=== PATIENT | male | born 1970 | race Caucasian/White ===

== ENCOUNTER 2018-12-17 02:53 | Outpatient (CLI) | payer BC, SELFPAY ==
[2018-12-18 09:38] LABS: PSA, Screening 0.5 ng/ml (0-2.5)
== END 2018-12-17 03:13 ==
PROVIDERS: PCP Family Medicine; Visit Provider Family Medicine
DX: N13.8 Other obstructive and reflux uropathy (principal); N40.1 Benign prostatic hyperplasia with lower urinary tract symptoms; Z12.5 Encounter for screening for malignant neoplasm of prostate
CPT/HCPCS: 36415; 84153

== ENCOUNTER 2019-04-21 08:05 | Day surgery (SDC) | payer OTHER, SELFPAY ==
--- NOTE | 2019-04-21 06:49 | W.COLOREPORT ---
Date of service: 04/21/19 Time of Service: 09:41 Colonoscopy Report Date of procedure: 04/21/19 Pre-op diagnosis general: Colon Cancer Screening Post-op diagnosis procedure note: other (sigmoid polyp) Procedure: Colonoscopy with polypectomy Surgeon: Mariela Fragoso Anesthesia proc note operative: other (General/ ASA 2/Meredith Villa CRNA) Estimated blood loss (mL): 2 Pathology: other (sigmoid polyp) Complications: None Disposition: same day Indications: Mr. Barros is a pleasant 49 year old male seen in the office for a screening colonoscopy. Risks, benefits and complications have been reviewed. Complications include but are not limited to bleeding, pain, perforation, missed small lesion/polyp, sore throat, aspiration and adverse reaction to the medications. Questions were entertained and answered to their satisfaction and they wished to proceed. No guarantees were given or implied. Prep: Miralax/Dulcolax Procedure Start Time: 09:41 Procedure End Time: 10:08 Retraction Time: 17 minutes Findings: One small sessile polyp in the sigmoid colon Procedure Description: After informed consent was obtained the patient was taken to the procedure room and placed in a left decubitous position. Monitors were applied and a time out was done. The patients name, date of , procedure, allergies to medications and metal in their body was reviewed. The patient was then sedated. Once sedated and comfortable a rectal exam was done. External exam was normal. Internal exam revealed a normal sphincter tone and no palpable masses. The prostate felt smooth. The scope was then introduced and retro-flexed. No internal hemorrhoids were identified. The scope was then advanced to the cecum without difficulty. The TI and appendiceal orifice were identified. The prep was adequate. The scope was then slowly retracted over 17 minutes back into the rectum. Polyps were removed with cold forceps in the sigmoid colon. The scope was removed and the patient was woken up and taken back to Same day surgery in stable condition. The patient tolerated the procedure well and there were no immediate complications. Follow up: The patient should follow up in 3-5 years unless they develop changes in bowel habits or other new gastrointestinal complaints.
--- NOTE | 2019-04-21 06:51 | PDOC.DSDIS_ITS ---
Discharge Plan Disposition Patient Disposition: HOME Condition: Good Discharge Details Reason For Visit: Colon Cancer Screening Attending Provider: Mariela Fragoso Primary Care Provider: Kavon Gagnon Home Meds and New Rx's Prescriptions: Continued naproxen sodium [Aleve] 220 MG capsule 220 mg PO PRN Qty: 2 RF: 0 Discontinued polyethylene glycol 3350 17 gram/dose powder 238 g PO ONCE Qty: 238 RF: 0 bisacodyl [Dulcolax (bisacodyl)] 5 mg tablet,delayed release (DR/EC) 5 mg PO ONCE Qty: 4 RF: 0 Discharge Instructions Instructions: Colonoscopy (GEN), Colorectal Polyps (GEN) Additional Instructions: Findings: one polyp Follow up: 3-5 years Please call if you develop: fevers >101.5 Nausea or Vomiting Abdominal pain that is not transient DAY SURGERY UNIT POST COLONOSCOPY INSTRUCTIONS 1. Because there will be medication in your system for the next 24 hours, you may feel a little sleepy. Your coordination will be affected. Therefore: a. Do not drive or operate dangerous equipment for 24 hours. b. Do not drink alcohol beverages for 24 hours (not even beer). c. Plan to go home and rest for the day. 2. Generally there are no restrictions on your activity after a day or so has gone by, but you may feel a bit fatigued for a few days. 3 After you arrive home you may have a light meal and return to a normal diet as you can tolerate it without feeling sick to your stomach. 4. After surgery, you may feel pain or discomfort. This should be only transient, but if it persists please contact your doctor. 5. If there are any questions regarding the findings of your procedure, please f eel free to contact your doctor. 6. If you are unable to contact your doctor with a problem, contact the hospital at [phone]. 7. Continue all your regular medications unless directed otherwise. I understand the above instructions and have no questions. Signature of Patient or Responsible Adult Escort Date/Time Name of Responsible Adult Escort Signature of Nurse Date/Time Activity:: Activity as Tolerated Diet:: As Tolerated Discharge Orders Discharge Orders: Discharge Order (Routine); Ordered 04/21/19 Ordered By: Mariela Fragoso DS: Diagnosis Discharge Diagnosis (1) S/P colonoscopy: Status: Acute (2) Colorectal polyp detected on colonoscopy: Status: Acute
[2019-04-21 08:20] VITALS: BP 132/76; PULSE 77; RESP 16; TEMP 36.4; O2SAT 98
[2019-04-21] MEDS: Lactated Ringers 1,000 ML 80 ML IV (08:35)
--- NOTE | 2019-04-21 10:05 | BOWEL_PTH ---
PATIENT: Lindsay Barros LOC: [facility] U#:[id number] AGE/SX: 49/M ROOM: RE04/21/[address]: Mariela Fragoso MD : 1970 BED: DIS: 04/21/2019 SPEC #: [id number] RECD: 04/21/19 12:53 STATUS: ROBERTO REQ #: [id number] DUDLEY: 04/21/19 10:[address]: Mariela Fragoso DEPT: Surgical Specimen RECD BY: Reva Rodriguez ENTERED: 04/21/19 12:54 SP TYPE: Bowel OTHR DR: Kavon Gagnon MD Tissues: 1 - BIOPSY BOWEL Procedures: GROSS AND MICRO LEVEL 4 Comments: [id number]
[2019-04-21 10:46] VITALS: BP 110/76; PULSE 66; RESP 16; TEMP 36.2; O2SAT 98
== END 2019-04-21 11:06 | disposition home or self-care (01) ==
LOC: SUR 08:05
PROVIDERS: PCP Family Medicine; Visit Provider Surgery
PROC: 0DJD8ZZ Inspection of Lower Intestinal Tract, Via Natural or Artificial Opening Endoscopic (ICD-10-PCS; CPT 45378; principal; 2019-04-21 09:30)
DX: Z12.11 Encounter for screening for malignant neoplasm of colon (principal); K63.5 Polyp of colon
CPT/HCPCS: 45380; 88305

== ENCOUNTER 2020-12-24 02:21 | Outpatient (CLI) | payer BC, SELFPAY ==
[2020-12-24 07:21] LABS: HCT 42.2 % (40.0-50.0); HGB 14.5 g/dL (13.5-17.5); MCH 28.6 pg (27.0-33.0); MCHC 34.4 % (32.0-36.0); MCV 83.2 fL (80-95); MPV 9.6 fL (8.0-11.0); Platelet Count 290 10^3/uL (130-400); RBC 5.07 10^6/uL (4.36-5.78); RDW 12.3 % (11.8-14.1); RDW-SD 37.2 fL; WBC 4.36 10^3/uL (4.4-10.8)
[2020-12-24 08:23] LABS: Hemoglobin A1C 5.4 % (<5.7)
[2020-12-24 09:12] LABS: ALT 34 U/L (16-63); AST 16 U/L (15-37); Albumin 4.2 g/dL (3.4-5.0); Alkaline Phosphatase 91 U/L (46-116); Anion Gap 7.5 mmol/L (3-11); BUN 29 mg/dL (7-18); Bilirubin, Total 0.8 mg/dL (0.2-1.0); CO2 29.5 mmol/L (21.0-32.0); CREATININE 1.4 mg/dL (0.70-1.30); Calcium 9.4 mg/dL (8.5-10.1); Calculated LDL 99 mg/dL (<100); Chloride 106 mmol/L (98-107); Cholesterol 152 mg/dL (<200); Estimated GFR 53.43 (mL/min/1.73m2); Glucose 91 mg/dL (74-106); HDL Cholesterol 42 mg/dL (40-60); Potassium 4.8 mmol/L (3.5-5.1); Sodium 143 mmol/L (136-145); Total Protein 7.5 g/dL (6.4-8.2); Triglyceride 56 mg/dL (<150)
[2020-12-24 17:31] LABS: PSA, Screening 0.4 ng/mL (0.0-3.5)
== END 2020-12-24 02:22 | disposition home or self-care (01) ==
PROVIDERS: PCP Family Medicine; Visit Provider Nurse Practitioner Family
DX: Z00.00 Encounter for general adult medical examination without abnormal findings (principal); Z13.220 Encounter for screening for lipoid disorders; Z13.1 Encounter for screening for diabetes mellitus; Z12.5 Encounter for screening for malignant neoplasm of prostate
CPT/HCPCS: 36415; 80053; 80061; 84153; 85027; 83036

== ENCOUNTER 2022-05-15 03:51 | Outpatient (CLI) | payer BC, SELFPAY ==
[2022-05-15 12:55] LABS: Anion Gap 10.2 mmol/L (3-11); BUN 27 mg/dL (7-18); CO2 26.8 mmol/L (21.0-32.0); CREATININE 1.2 mg/dL (0.70-1.30); Calcium 9.4 mg/dL (8.5-10.1); Chloride 106 mmol/L (98-107); Glucose 92 mg/dL (74-106); Potassium 4.3 mmol/L (3.5-5.1); Sodium 143 mmol/L (136-145)
[2022-05-15 23:27] LABS: PSA, Screening 0.8 ng/mL (<=3.5)
== END 2022-05-15 03:52 | disposition home or self-care (01) ==
LOC: LOS 03:52
PROVIDERS: PCP Family Medicine; Visit Provider Family Medicine
DX: Z00.00 Encounter for general adult medical examination without abnormal findings (principal); Z12.5 Encounter for screening for malignant neoplasm of prostate; R03.0 Elevated blood-pressure reading, without diagnosis of hypertension
CPT/HCPCS: 36415; 80048; 84153

== ENCOUNTER 2023-02-09 10:48 | Outpatient (CLI) | payer BC, SELFPAY ==
[2023-02-12 09:09] LABS: PSA, Screening 0.8 ng/mL (<=3.5)
== END 2023-02-09 10:49 | disposition home or self-care (01) ==
LOC: LOS 10:48
PROVIDERS: PCP Family Medicine; Referring Provider Family Medicine; Visit Provider Family Medicine
DX: Z12.5 Encounter for screening for malignant neoplasm of prostate (principal)
CPT/HCPCS: 36415; 84153

== ENCOUNTER 2024-05-08 04:15 | Outpatient (CLI) | payer OTHER, SELFPAY ==
[2024-05-09 07:51] LABS: PSA, Screening 0.6 ng/mL (<=3.5)
[2024-05-09 09:04] LABS: Hepatitis C Ab w Rflx HCV PCR Negative (Negative)
[2024-05-09 09:28] LABS: HIV-1/2 Ag & Ab Screen Negative (Negative)
== END 2024-05-08 04:16 | disposition home or self-care (01) ==
LOC: LBO 04:16
PROVIDERS: PCP Family Medicine; Visit Provider Family Medicine
DX: Z12.5 Encounter for screening for malignant neoplasm of prostate (principal); Z80.42 Family history of malignant neoplasm of prostate; Z11.4 Encounter for screening for human immunodeficiency virus [HIV]; Z00.00 Encounter for general adult medical examination without abnormal findings
CPT/HCPCS: 36415; 84153; 86803; 87389

== ENCOUNTER 2024-10-07 14:19 | Outpatient (CLI) | payer OTHER, SELFPAY ==
--- NOTE | 2024-10-07 10:48 | DI.RAD_ITS ---
Exam(s) XR CERVICAL SPINE COMP 4-5V EXAM: XR CERVICAL SPINE COMP 4-5V CLINICAL HISTORY: back pain M54.9 DORSALGIA. TECHNIQUE: 2D digital imaging was performed. COMPARISON: No exams were available for comparison FINDINGS: Five views No evidence of fracture, listhesis, nor offset of the spinal laminar line. There is chronic moderate disc space narrowing at C4-5, C5-6, and C6-7 levels. There are prominent bilateral Luschka joint os teophytes at these levels. Mild degenerative changes in the facet joints. There are prominent C7 tr ansverse process is bilaterally, bordering on small cervical ribs at this level. Bone density normal. No osseous lesions. IMPRESSION: Multilevel chronic degenerative disc disease. Also multilevel Luschka joint osteophytes. Prominent C7 transverse processes. DATA REPOSITORY: RADIATION DOSE DELIVERED:
--- NOTE | 2024-10-07 10:48 | DI.RAD_ITS ---
Exam(s) XR THORACIC SPINE COMPLETE EXAM: XR THORACIC SPINE COMPLETE CLINICAL HISTORY: back pain with radiation to left arm M54.9 DORSALGIA. TECHNIQUE: 2D digital imaging was performed. COMPARISON: CR CHEST 2 VIEWS PA,LAT from 10/12/2016 FINDINGS: 3 views No evidence of fracture, listhesis, nor abnormal widening the paraspinal lines. No prominent scolios is. Bone density normal. No significant osseous lesions. There is mild disc space narrowing at T7- 8 level. Incidentally noted is some a small nodule in the mid right lung field which is probably a calcified g ranuloma and which is unchanged from chest x-ray of 2017. IMPRESSION: Mild degenerative changes as above. DATA REPOSITORY: RADIATION DOSE DELIVERED:
== END 2024-10-07 14:39 ==
LOC: DI 14:25
PROVIDERS: PCP Family Medicine; Visit Provider Physician Assistant
DX: M50.122 Cervical disc disorder at C5-C6 level with radiculopathy (principal)
CPT/HCPCS: 72050; 72072

== ENCOUNTER 2025-02-27 00:20 | Outpatient (CLI) | payer OTHER, SELFPAY ==
--- NOTE | 2025-02-27 08:26 | DI.RAD_ITS ---
Exam(s) XR HIP LT COMPLETE AP PELVIS EXAM: XR HIP LT COMPLETE AP PELVIS CLINICAL HISTORY: l inguinal pain,llq groin pain,r10.32. TECHNIQUE: 2D digital imaging was performed. Two views. COMPARISON: No exams were available for comparison FINDINGS: BONES: No acute fracture is present. No bony destructive lesion is seen. JOINTS: No dislocation present. The SI joints and pubic symphysis are intact. There is mild bilateral superior hip joint space narrowing. There is mild spurring at the superior acetabula as well as at the margins of both femoral heads. The findings of appears symmetric bilaterally. SOFT TISSUE: Normal. IMPRESSION: [id number] degenerative changes of both hips. DATA REPOSITORY: RADIATION DOSE DELIVERED:
== END 2025-02-27 00:40 ==
LOC: DI 00:20
PROVIDERS: PCP Family Medicine; Visit Provider Family Medicine
DX: M16.0 Bilateral primary osteoarthritis of hip
CPT/HCPCS: 73502

== ENCOUNTER 2025-04-09 18:50 | Emergency (ER) | payer OTHER, SELFPAY ==
[2025-04-09 18:53] VITALS: BP 159/79; PULSE 84; RESP 16; TEMP 36.7
[2025-04-09] MEDS: Tetracaine 0.5% 4 ML BTL OP (18:58)
[2025-04-09] MEDS: Fluorescein STRIPS 100/BOX 1 MG OP (18:59)
[2025-04-09 19:24] VITALS: O2SAT 98
--- NOTE | 2025-04-09 19:27 | W.ED.GENAD ---
Discharge Plan Disposition Patient Disposition: Home Condition: Stable Discharge Details Clinical Impression: Foreign body sensation, right eye Primary Care Provider: Sarah Silva ED Provider: Alexis Cormier Home Meds and New Rx's Prescriptions: No Action No Known Home Meds Discharge Instructions Additional Instructions: no foreign body seen or evidence of corneal disruption continue to wear glasses while symptoms are ongoing use ointment provided 3 times daily and keep eyes moist with artificial tears if symptoms are ongoing by Sunday, please follow up with [facility] or return to ED HPI General Date/Time Provider Initiated Documentation: 04/09/25 18:54. Limitations to Documentation: no limitations. Information obtained by: patient. HPI Narrative: 54-year-old gentleman without significant past medical history presents for evaluation as right eye discomfort. He reports that overnight last night when he woke up in the [place] he had a foreign body sensation so he went and irrigated his eye thoroughly. He states that it did not really bother him throughout the day, occasionally he still feels a little irritation there in the center of his eye. He has not noticed significant pain with eye movements or vision change. He reports that he does have contact lenses that he uses but he has not worn them in about a month. He usually just wears his glasses. 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 Related Data Home Medications ?Medication ?Instructions ?Recorded ?Confirmed Unknown [No Known Home Meds] 04/09/25 04/09/25 Allergies Allergy/AdvReac Type Severity Reaction Status Date / Time No Known Allergies Allergy Verified 04/09/25 18:52 General Stated Complaint: EyeProblem BRISEIDA: 4 Exam Narrative Exam Narrative: Review of Systems: All systems reviewed & are unremarkable except as noted in HPI and below Well-developed, no acute distress NCAT PERRL, normal conjunctiva no FB noted acuity 20/30, 20/50, 20/30 No fluorescein uptake Course Vital Signs Vital signs: Vital Signs Temperature 36.7 C 04/09/25 18:53 Pulse 84 04/09/25 18:53 Respiratory Rate 16 04/09/25 18:53 Blood Pressure 159/79 H 04/09/25 18:53 Temperature 36.7 C 04/09/25 18:53 Temperature Source Oral 04/09/25 18:53 Pulse 84 04/09/25 18:53 Respiratory Rate 16 04/09/25 18:53 Blood Pressure 159/79 H 04/09/25 18:53 Blood Pressure Position Sitting 04/09/25 18:53 Pulse Oximetry 98 04/09/25 19:24 Oxygen Delivery Method Room Air 04/09/25 19:24 Pain Level 2 04/09/25 18:53 Medical Decision Making Emergent evaluation of right eye discomfort. Reports foreign body sensation yesterday with minimal symptoms today, No significant deficit in acuity as well as there is no foreign body noted or fluorescein uptake on examination. I suspect that he had foreign body last night with some residual irritation today. Will give erythromycin for comfort. Although he does have history of contact lens use, do not think that he needs true treatment for eye infection, so I think erythromycin for comfort would be totally appropriate. Advise that if symptoms do not resolve over the weekend and he still has sensation by Sunday he should follow-up with [facility] Return to the emergency department over the weekend if he develops any worsening pain or vision deficits. PFSH All Active Problems (Updated 04/09/25 @ 19:16 by Alexis Cormier MD) Foreign body sensation, right eye (Acute) Chronic pain of left groin (Acute) Dupuytren's contracture of left hand (Acute) Family history of prostate cancer in father (Acute 11/20/16) Medical History (Updated 04/09/25 @ 19:16 by Alexis Cormier MD) Left cervical radiculopathy Lumbar back pain with radiculopathy affecting left lower extremity improved with a course of PT Colorectal polyp detected on colonoscopy (~04/21/19) hyperplastic pathology Left hand fracture Surgical History H/O hand surgery Left hand surgery (with screw placed) S/P colonoscopy (~04/21/19) Family History Mother , 72 Alzheimer disease Father , age 77 Prostate cancer Maternal Grandfather Heart disease Maternal Grandmother Heart disease ? 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 [employer] Pets and animals: Yes Pets and animals: dog(s) Sexually active: Yes Do you think of yourself as: straight/heterosexual Current gender identity: male What is your relationship status?: How often do you talk on the phone with friends or family?: three or more times per week How often do you get together with friends or relatives?: twice per week How often do you attend evangelical or scientology services?: 1-3 times per year Do you belong to any clubs or organized social groups?: yes Panel score (0-1 are the most socially isolated patients): 3 What type of physical activity do you participate in: walking and other Details: snowshoeing, snowmobiling Duration: 45-60 minutes/day Frequency: 3-4 times per week Manda/Mandaeism: Zoroastrian Special manda needs: No Seatbelt use: always Helmet use: Yes Helmet use: always Drive intox or ride w/intox delivery driver/supervisor: No Do you feel safe at home: Yes Additional Social history: Enjoys winter and outdoor activities.
== END 2025-04-09 19:27 | disposition home or self-care (01) ==
LOC: ER 19:17
PROVIDERS: Emergency Provider Emergency Medicine; PCP Family Medicine
DX: H57.8A1 Foreign body sensation, right eye (principal)
CPT/HCPCS: 99283

== ENCOUNTER 2025-06-10 17:05 | Outpatient (CLI) | payer OTHER, SELFPAY ==
[2025-06-10 17:39] LABS: Anion Gap 6.9 mmol/L (3-11); BUN 28 mg/dL (7-18); CO2 29.1 mmol/L (21.0-32.0); Calcium 9.2 mg/dL (8.5-10.1); Calculated LDL 78 mg/dL (<100); Chloride 106 mmol/L (98-107); Cholesterol 140 mg/dL (<200); Estimated GFR 78.79 (mL/min/1.73m2); Glucose 107 mg/dL (74-106); HDL Cholesterol 47 mg/dL (>or=40); Potassium 4.5 mmol/L (3.5-5.1); Sodium 142 mmol/L (136-145); Triglyceride 76 mg/dL (<150)
[2025-06-11 17:26] LABS: PSA, Screening 0.7 ng/mL (<=3.5)
== END 2025-06-10 17:06 | disposition home or self-care (01) ==
LOC: LBO 17:06
PROVIDERS: PCP Family Medicine; Visit Provider Family Medicine
DX: Z12.5 Encounter for screening for malignant neoplasm of prostate (principal); Z13.6 Encounter for screening for cardiovascular disorders; Z13.1 Encounter for screening for diabetes mellitus
CPT/HCPCS: 36415; 80048; 80061; 84153

== ENCOUNTER → 2025-09-11 09:53 | Outpatient (CLI) | payer OTHER, SELFPAY ==
--- NOTE | 2025-09-11 09:45 | DI.RAD_ITS ---
Exam(s) XR CHEST 2V PA LATERAL EXAM: XR CHEST 2V PA LATERAL CLINICAL HISTORY: cough R05.9. TECHNIQUE: 2D digital imaging was performed. COMPARISON: CR CHEST 2 VIEWS PA,LAT from 10/12/2016 FINDINGS: 2 views: Heart size is normal. The mediastinum is not widened. Lungs are clear. No infiltrates nor pleural effusions. A benign granuloma in the right upper lobe is unchanged IMPRESSION: No acute pulmonary findings. DATA REPOSITORY: RADIATION DOSE DELIVERED:
== END ==
LOC: DI 09:55
PROVIDERS: PCP Family Medicine; Visit Provider Nurse Practitioner Family
DX: R05.9 Cough, unspecified (principal)
CPT/HCPCS: 71046